=== PATIENT | female | born 1985 | race Caucasian/White ===

== ENCOUNTER 2021-04-12 18:37 | Emergency (ER) | payer OTHER ==
[~2021-04-12 18:37] MED LIST: BACTRIM DS TAB1 EACH PO; DELSYM30 MG/5 ML PO; FLONASE 0.05% N16 GM; IBUPROFEN600 MG PO; KEFLEX CAP 500500 MG PO; OMNICEF 300 MG300 MG PO; PERCOCET 5/325 T1 EA PO; PHENERGAN 25 MG25 M1 PO; ZOFRAN4 MG PO
[2021-04-12 19:26] LABS: HEMOGLOBIN 13.1 gm/dl (12.3-15.3); RED BLOOD COUNT 4.51 M/UL (4.00-5.10); WHITE BLOOD COUNT 9.6 K/UL (4.5-11.0)
[2021-04-12 19:44] LABS: BUN/CREATININE RATIO 18 (0-10)
== END 2021-04-12 21:00 | disposition left against medical advice (07) ==
LOC: ER1 18:37
PROVIDERS: Family Medicine
DX: R51.9 Headache, unspecified (principal); R42 Dizziness and giddiness; R11.0 Nausea; F17.200 Nicotine dependence, unspecified, uncomplicated; Z88.1 Allergy status to other antibiotic agents; Z88.8 Allergy status to other drugs, medicaments and biological substances
CPT/HCPCS: 80053; 81001; 84703; 85025; 93005; 96374; 99284; J2550